=== PATIENT | female | born 1970 | race Caucasian/White ===

== ENCOUNTER → 2021-08-25 16:03 | Outpatient (CLI) | payer OTHER, SELFPAY | PROVIDERS: PCP Family Medicine; Visit Provider Family Medicine | DX: Z23 Encounter for immunization (principal) | CPT/HCPCS: 0004A; 91300 ==

== ENCOUNTER 2023-04-27 08:34 | Emergency (ER) | payer OTHER, SELFPAY ==
[2023-04-27 08:35] VITALS: BP 135/87; PULSE 93; RESP 14; TEMP 36.2; O2SAT 100; BMI 26.7
[2023-04-27 08:48] VITALS: O2SAT 98
--- NOTE | 2023-04-27 09:00 | EX.ED.GENINJ ---
HPI History of Present Illness Chief Complaint: Head Injury Informant: patient Narrative Narrative: Patient walking into work with her and a friend/coworker today, they were having a conversation and she was not paying attention and accidentally caught her toe on a piece of cement falling forward, hitting the left side of her forehead/face, left shoulder, prescription and some fingers and her left knee. She was dazed, she did not lose consciousness. Her vision was abnormal for 10 or 15 minutes but now is back to normal. She wears glasses, they were not damaged, and now she feels like she can see okay. She has a headache, facial pain where she hit, no vision changes now and no focal neurologic symptoms or other injuries. PFSH PFSH Medical History no medical history no medical history Home Medications No Known/Unobtainable [No Known Home Medications] 02/13/15 [History Last Taken Unknown] Allergy/AdvReac Type Severity Reaction Status Date / Time ibuprofen AdvReac Other Verified 04/27/23 08:34 Social History Smoking Status: Never smoker ROS ROS ED Constitutional Constitutional ED: Denies chills or fever(s) Eyes Eyes: Reports other Details: Transient difficulty with vision but resolved ; Denies change in vision or diplopia ENT ENT ED: Reports facial pain; Denies ear pain, epistaxis or rhinorrhea Cardiovascular Cardiovascular: Denies chest pain or palpitations Respiratory/Chest Respiratory/Chest: Denies cough or dyspnea Gastrointestinal Gastrointestinal: Denies abdominal pain, diarrhea, melena, nausea or vomiting Genitourinary Genitourinary ED: Denies dysuria or hematuria Musculoskeletal Musculoskeletal: Denies back pain, extremity pain or neck pain Integumentary Reports Abrasions; Denies abscess, laceration or rash Neurologic Neurologic: Reports headache(s); Denies confusion, paresthesias or weakness EXAM Physical Exam Const Vital Signs: 04/27/23 08:35 04/27/23 08:48 Temperature 97.1 F L Temperature Source Temporal Pulse Rate 93 Respiratory Rate 14 Respiratory Effort Normal Non-Labored Respiratory Depth Normal Respiratory Pattern Normal Blood Pressure 135/87 H Blood Pressure Mean 103 Pulse Ox 100 98 Oxygen Delivery Method Room Air Room Air Positive well nourished and well developed General Appearance ED: well developed and NAD HEENT Reports TM's clear and nasal mucous membranes and turbinates normal HEENT Narrative: Hematoma with tenderness just above the left eye, superior orbital brim feels intact without crepitance or step-off. No crepitance or depression on the forehead. No other signs of HEENT trauma. Intraoral exam normal without trauma or trismus. Face and Sinus: facial tenderness Tympanic Membrane ED: Yes TM's clear Eyes PERRL and EOMs intact bilaterally Visual Acuity: other Other Details: no entrapment or pain with extraocular movements Neck full ROM and supple General: Negative for tenderness Chest Wall inspection of chest normal and palpation of chest normal Chest: symmetrical chest wall rise; Negative for crepitus or tenderness Resp normal respiratory effort and clear to auscultation bilaterally Percussion: other equal BS bilat Cardio no murmurs Rate: regular rate Rhythm: regular rhythm GI normal to inspection, nondistended, normoactive bowel sounds, soft to palpation and non-tender Back/Spine normal ROM Cervical Spine: Negative for cervical spine tenderness Thoracic Spine / Upper Back: Negative for thoracic spinal tenderness Lumbar Spine / Lower Back: Negative for lumbar spinal tenderness Extremity normal to inspection and full ROM Extremity Narrative: Abrasion to the posterior aspect of the left shoulder without any bony tenderness or limited range of motion. Minor abrasions to a couple of fingers and the left anterior knee. All ligaments stable and intact with short endpoints, extensor mechanism intact, no effusion, no bony tenderness throughout. General Extremety ED: Negative for tenderness Neuro oriented x3, CN's II-XII intact bilaterally, moves all extremities, no focal motor deficits and no sensory deficits noted [place] Coma Scale: document GCS findings Spontaneous Obeys Commands Oriented 15 Sensorium / Orientation: awake and alert Psych mental status grossly normal and thought process normal Skin no wounds Lesions: no lesions Rashes: no rashes MDM MDM MDM Narrative Medical decision making narrative: CT of the head was obtained, I reviewed the images and the result which I agree with, negative for any acute skull/forehead fracture or intracranial hemorrhage. Patient was reassured. I do not think she needs x-rays of the left shoulder she can move the joint fully, she has no bony tenderness near the joint, just an abrasion posteriorly. We cleansed and dressed that in addition to the other abrasions, her knee is benign, she is reassured and discharged. She was given concussion precautions. Radiography Diagnostic Testing: Clinical Impression(s) from Imaging Studies Brain CT 04/27/23 09:24 IMPRESSION: Normal unenhanced CT scan of the brain. Electronically Signed: Miles Keith MD at 9:49 EDT , Discharge Plan Triage Chief Complaint: Head Injury ED Provider: Edward Brown Dx/Rx/DC Orders Clinical Impression: Fall from slip, trip, or stumble, Multiple abrasions, Closed head injury without loss of consciousness Instructions: ED Head Injury (Adult) Prescriptions: No Action No Known Home Medications Stand Alone Forms: ED Work / School Excuse Primary Care Provider: Melchor Tinoco Referrals: Melchor Tinoco MD [Primary Care Provider] - As Needed
[2023-04-27] MEDS: Acetaminophen 500 MG Tablet 1000 MG PO (09:14)
--- NOTE | 2023-04-27 09:24 | CT_ITS ---
STUDY: CT BRAIN WITHOUT CONTRAST REASON FOR EXAM: Female, 53 years old. Fall/trauma RADIATION DOSAGE (If Supplied By Facility): CTDIvol = ( 44.99 ) mGy, DLP = ( 812.98 ) mGycm TECHNIQUE: Transaxial CT imaging of the brain was performed without administration of intravenous contrast material. Individualized dose optimization techniques were used for this CT. COMPARISON: No relevant priors. FINDINGS: Normal soft tissue structures. Normal calvarium. Normal size ventricles and extra-axial spaces for the patient''s age. Normal white matter tracts of the cerebral hemispheres. Normal basal ganglia and thalami. Normal brainstem. Normal cerebellum. There is no intracranial hemorrhage. There are no findings of an acute ischemic infarction. Normal visualized paranasal sinuses. CT/Brain/Head without Contrast IMPRESSION: Normal unenhanced CT scan of the brain. Electronically Signed: Miles Keith MD at 9:49 EDT ,
--- NOTE | 2023-04-27 09:34 | ED.RN ---
Pt. informed this RN that this is a work lucrecia comp as she fell outside of work. Pt. reached out to her HR rep. that stated she did not need a drug/alcohol test. MORENAI given to patient
== END 2023-04-27 10:33 | disposition home or self-care (01) ==
PROVIDERS: Emergency Provider Emergency Medicine; PCP Family Medicine; Visit Provider Emergency Medicine
DX: S09.90XA Unspecified injury of head, initial encounter (principal); W01.0XXA Fall on same level from slipping, tripping and stumbling without subsequent striking against object, initial encounter
CPT/HCPCS: 70450; 99283